=== PATIENT | female | born 1975 | race Hispanic/Latino ===

== ENCOUNTER 2017-04-26 09:01 | Day surgery (SDC) | payer OTHER ==
[2017-04-21 11:37] VITALS: BMI 27.4
[2017-04-26] MEDS ORDERED: Lactated Ringer's 1,000 ML IV ONE ×2 (10:10→12:20)
[2017-04-26 10:31] LABS: HEMOGLOBIN 12.9 g/dL (12.0-16.0); MEAN CELL VOLUME 85.2 fl (81.0-99.0); MEAN CORPUSCULAR HEMOGLOBIN 27.8 pg (27.0-31.0); MEAN CORPUSCULAR HGB CONC 32.7 g/dL (33.0-37.0); RBC 4.62 Mil/uL (3.80-5.20); RED CELL DISTRIBUTION WIDTH 17.1 % (11.5-14.5); WHITE BLOOD COUNT 5.5 K/uL (4.8-10.8)
[2017-04-26] MEDS ORDERED: Silver Nitrate Topical - Stick ONE (11:15)
[2017-04-26] MEDS ORDERED: Midazolam 2 MG/2 ML VIAL ONE (11:16)
[2017-04-26] MEDS ORDERED: Propofol 10 mg/ml Inj (20 ML) ONE (11:16)
--- NOTE | 2017-04-26 11:19 | CP.PCM.HP ---
History of Present Illness - History of Present Illness History of Present Illness: 41yo female found to have submusocal fibroid on SIS and ultrasound. Pt to be starting fertility treatment after fibroid removal. discussed with patient the R/B/A of procedure and all patient questions answered. Present on Admission - Present on Admission Any Indicators Present on Admission: No History of DVT/PE: No History of Uncontrolled Diabetes: No Urinary Catheter: No Decubitus Ulcer Present: No Past Patient History - Past Medical History & Family History Past Medical History?: No - Past Social History Smoking Status: Never Smoked - CARDIAC Hx Cardiac Disorders: No Hx Pacemaker: No - PULMONARY Hx Respiratory Disorders: No Hx Asthma: Yes Hx Bronchitis: Yes Hx Pneumonia: Yes - NEUROLOGICAL Hx Neurological Disorder: No Hx Paralysis: No - HEENT Hx HEENT Problems: No - RENAL Hx Chronic Kidney Disease: No - ENDOCRINE/METABOLIC Hx Endocrine Disorders: No - HEMATOLOGICAL/ONCOLOGICAL Hx Blood Disorders: No Hx Blood Transfusions: No Hx Blood Transfusion Reaction: No - INTEGUMENTARY Hx Dermatological Problems: No - MUSCULOSKELETAL/RHEUMATOLOGICAL Hx Musculoskeletal Disorders: No Hx Falls: No - GASTROINTESTINAL Hx Gastrointestinal Disorders: Yes Hx Gastritis: Yes - GENITOURINARY/GYNECOLOGICAL Hx Genitourinary Disorders: No - PSYCHIATRIC Hx Psychophysiologic Disorder: Yes Hx Anxiety: Yes Hx Depression: No Hx Emotional Abuse: No Hx Physical Abuse: No Hx Substance Use: No - SURGICAL HISTORY Hx Surgeries: Yes Hx Section: Yes Hx Dilation and Curettage: Yes Hx Tonsillectomy: Yes - ANESTHESIA Hx Anesthesia: Yes Hx Anesthesia Reactions: No Hx Malignant Hyperthermia: No Has any member of the family had a problem w/ anesthesia?: No Meds Allergies/Adverse Reactions: Allergies Allergy/AdvReac Type Severity Reaction Status Date / Time No Known Allergies Allergy Verified 05/27/15 20:23 Physical Exam - Constitutional Appears: Well, Non-toxic, No Acute Distress - Head Exam Head Exam: ATRAUMATIC - Eye Exam Eye Exam: EOMI, Normal appearance - ENT Exam ENT Exam: Mucous Membranes Moist, Normal Exam - Neck Exam Neck exam: Positive for: Full Rom, Normal Inspection - Respiratory Exam Respiratory Exam: Clear to Auscultation Bilateral, NORMAL BREATHING PATTERN - Cardiovascular Exam Cardiovascular Exam: REGULAR RHYTHM - GI/Abdominal Exam GI & Abdominal Exam: Soft. absent: Distended, Tenderness - Neurological Exam Neurological exam: Alert, Oriented x3 Results - Vital Signs Recent Vital Signs: Last Vital Signs Temp 98.4 F 04/26/17 09:50 Pulse 87 04/26/17 09:50 Resp 20 04/26/17 09:50 BP 153/96 H 04/26/17 09:50 Pulse Ox 100 04/26/17 09:50 - Labs Result Diagrams: 04/26/17 10:23 Labs: Laboratory Results - last 24 hr 04/26/17 04/26/17 10:23 10:23 WBC 5.5 RBC 4.62 Hgb 12.9 Hct 39.4 MCV 85.2 MCH 27.8 MCHC 32.7 L RDW 17.1 H Plt Count 132 Blood Type A POSITIVE Antibody Screen Negative BBK History Checked Patient has bt - Imaging and Cardiology US - abdomen Status: Report reviewed by me Assessment & Plan - Assessment and Plan (Free Text) Assessment: Submucosal fibroid Plan: Hysteroscopic myomectomy - Date & Time Date: 04/26/17 Time: 11:20
[2017-04-26] MEDS ORDERED: ePHEDrine 50 mg/ml Inj ONE (11:57)
[2017-04-26] MEDS ORDERED: Succinylcholine 200 mg/10 ml Inj IV ONE (12:01)
[2017-04-26 12:54] LABS: BASO % 0.8 % (0.0-2.0); EOS # 0.2 K/uL (0.0-0.7); EOS % 4.5 % (0.0-4.0); HEMOGLOBIN 11.6 g/dL (12.0-16.0); LYMPH # 1.5 K/uL (1.0-4.3); LYMPH % 31.5 % (20.0-40.0); MEAN CELL VOLUME 85.2 fl (81.0-99.0); MEAN CORPUSCULAR HEMOGLOBIN 28.5 pg (27.0-31.0); MEAN CORPUSCULAR HGB CONC 33.4 g/dL (33.0-37.0); MEAN PLATELET VOLUME 10.6 fl (7.2-11.7); MONO # 0.4 K/uL (0.0-0.8); MONO % 8.4 % (0.0-10.0); NEUT # 2.5 K/uL (1.8-7.0); NEUT % 54.8 % (50.0-75.0); RBC 4.07 Mil/uL (3.80-5.20); WHITE BLOOD COUNT 4.6 K/uL (4.8-10.8)
[2017-04-26 13:04] LABS: BLOOD UREA NITROGEN 10 mg/dl (7-17); CALCIUM 7.9 mg/dL (8.4-10.2); GFR AFRICAN-AMERICAN > 60; GFR NON-AFRICAN AMERICAN > 60
[2017-04-26 13:05] LABS: INR 1.1 (0.9-1.2); PARTIAL THROMBOPLASTIN TIME 26.9 Seconds (25.6-37.1); PROTHROMBIN TIME 12.2 Seconds (9.8-13.1)
[2017-04-26] MEDS ORDERED: Lactated Ringer's 1,000 ML IV SCH ×2 (13:30→13:45)
--- NOTE | 2017-04-26 13:42 | PCM.SURG1 ---
Surgeon's Initial Post Op Note - Surgeon's Notes Surgeon: Yokasta Size Cutter: Sven Type of Anesthesia: General Endo Anesthesia Administered By: Rosalie Pre-Operative Diagnosis: submucosal uterine fibroid Operative Findings: Enlarged fibroid uterus, cervical scarring Post-Operative Diagnosis: Same Operation Performed: Hysteroscopy, diagnostic laparoscopy. laparoscopy completed due too uterine perforation during dilation of cervix Specimen/Specimens Removed: none Estimated Blood Loss: EBL {In ML}: 50 Blood Products Given: N/A Drains Used: No Drains Post-Op Condition: Good Date of Surgery/Procedure: 04/26/17 Time of Surgery/Procedure: 13:43
[2017-04-26] MEDS ORDERED: Oxycodone/Acetaminophen 5/325 mg Tab PO PRN (13:45)
[2017-04-26 17:31] LABS: BASO % 0.3 % (0.0-2.0); EOS % 0.2 % (0.0-4.0); HEMOGLOBIN 11.5 g/dL (12.0-16.0); LYMPH # 0.9 K/uL (1.0-4.3); MEAN CORPUSCULAR HEMOGLOBIN 28.2 pg (27.0-31.0); MEAN CORPUSCULAR HGB CONC 33.2 g/dL (33.0-37.0); MEAN PLATELET VOLUME 9.9 fl (7.2-11.7); MONO # 0.5 K/uL (0.0-0.8); MONO % 4.7 % (0.0-10.0); NEUT % 86.8 % (50.0-75.0); PLATELET COUNT 129 K/uL (130-400); RBC 4.06 Mil/uL (3.80-5.20); RED CELL DISTRIBUTION WIDTH 17.3 % (11.5-14.5); WHITE BLOOD COUNT 11.5 K/uL (4.8-10.8)
[2017-04-26 17:57] LABS: BLOOD UREA NITROGEN 8 mg/dl (7-17); CALCIUM 7.9 mg/dL (8.4-10.2); GFR AFRICAN-AMERICAN > 60; GFR NON-AFRICAN AMERICAN > 60
[2017-04-26 19:29] LABS: BANDS 2 % (0-2); LYMPHOCYTE 12 % (20-50); MONOCYTE 6 % (0-10); NEUTROPHIL 80 % (42-75); TOTAL CELLS COUNTED 100
[2017-04-26 19:30] LABS: ANISOCYTOSIS SLIGHT; GIANT PLATELETS PRESENT; HYPOCHROMIC SLIGHT; MICROCYTOSIS SLIGHT; PLATELET ESTIMATE NORMAL (NORMAL)
[2017-04-26 22:58] LABS: BASO # 0.1 K/uL (0.0-0.2); BASO % 0.7 % (0.0-2.0); EOS % 0.3 % (0.0-4.0); HEMOGLOBIN 12.1 g/dL (12.0-16.0); LYMPH # 1.4 K/uL (1.0-4.3); LYMPH % 11.6 % (20.0-40.0); MEAN CELL VOLUME 86.2 fl (81.0-99.0); MEAN CORPUSCULAR HGB CONC 32.5 g/dL (33.0-37.0); MEAN PLATELET VOLUME 10.5 fl (7.2-11.7); MONO # 0.7 K/uL (0.0-0.8); MONO % 5.6 % (0.0-10.0); NEUT # 9.7 K/uL (1.8-7.0); NEUT % 81.8 % (50.0-75.0); NRBC % 0.1 % (0.0-0.0); RBC 4.32 Mil/uL (3.80-5.20); WHITE BLOOD COUNT 11.9 K/uL (4.8-10.8)
[2017-04-26 23:08] LABS: BLOOD UREA NITROGEN 8 mg/dl (7-17); CALCIUM 8.3 mg/dL (8.4-10.2); GFR AFRICAN-AMERICAN > 60; GFR NON-AFRICAN AMERICAN > 60
[2017-04-27 00:24] VITALS: RESP 18
--- NOTE | 2017-04-27 02:17 | OP ---
PROCEDURE DATE: 04/26/2017 PREOPERATIVE DIAGNOSIS: Submucosal uterine fibroid. POSTOPERATIVE DIAGNOSIS: Submucosal uterine fibroid. OPERATION PERFORMED: Hysteroscopy, diagnostic laparoscopy. SURGEON: Dr. Skyler Templeton PARTS TECHNICIAN: Dr. Machuca. Dr. Machuca assisted during the laparoscopic portion of the procedure. TYPE OF ANESTHESIA: General. ANESTHESIOLOGIST: Dr. Wiggins OPERATIVE FINDINGS: Endometrial cavity with significant scarring, uterine perforation at the level of the cervix at laparoscopy, no active uterine bleeding, fluid seen in retroperitoneal space in the broad ligament. Enlarged fibroid uterus, normal ovaries bilaterally, and normal appearing tubes bilaterally. COMPLICATIONS: Uterine perforation during cervical dilation. DESCRIPTION OF PROCEDURE: The patient was taken to the operating room where general anesthesia was found to be adequate. The patient was prepped and draped in normal sterile fashion in the dorsal lithotomy position. A weighted speculum was placed at the posterior aspect of the vagina. A Baldwin retractor was placed at the anterior surface of the vagina. The cervix was grasped with a single-tooth tenaculum at the anterior surface. The cervix was attempted to be dilated with a Handy dilators due to cervical scarring and cervical stenosis, lacrimal dilators were used at the initial dilation process. The cervix was continued to be dilated with Handy dilators to a size of 18-Telugu. The hysteroscope was placed through the cervix into the uterine cavity. The uterine cavity was visualized and no discrete uterine fibroids were seen in the uterine cavity. The uterine cavity appeared significantly scarred with only one tubal ostia visualized. Also, at this time, an accessory tract was seen at the level of the cervix. At that time in the procedure, the patient was found to be hypotensive and tachycardic. The fluid deficit on the MyoSure device was also 1000 mL at that time. Due to these events, decision was made to abandon the procedure and proceed with diagnostic laparoscopy to evaluate for possible bleeding. Attention was then turned to the abdomen of the patient. The patient's abdomen was prepped and draped in normal sterile fashion. Approximately 5-mm incision was placed in the umbilicus. The Veress needle was placed through the umbilical incision into the abdominal cavity. After ensuring proper placement, the abdominal cavity was insufflated with CO2 gas to a pressure of 15 mmHg. The Veress needle was removed from the patient. A 5-mm laparoscopic trocar was placed through the umbilical incision into the abdominal cavity. The laparoscope was placed through the trocar into the abdominal cavity. The abdomen and pelvis were explored and the above findings noted. An accessory port that was placed under direct visualization with a 5-mm trocar to properly explore the pelvis. After the pelvis was fully visualized and no active bleeding was seen, decision was made to end the procedure. All instruments and laparoscope were removed under direct visualization. The trocars were removed under direct visualization. The fascial layer at the umbilical port site and accessory port site were closed with a [id number] suture of 0 Vicryl. Subcutaneous tissue was closed with interrupted stitch of 3-0 plain. The skin was closed with Dermabond. The patient tolerated the procedure well. All sponge, lap count, and needle counts were correct x2. Upon transition to laparoscopy, the patient was given 2 g of Ancef. CBC and complete metabolic panel was drawn intraoperatively after perforation found. These labs were found to be within normal limits. After the patient's initial episode of hypotension, the patient was found to be normotensive and normocardic. The patient was taken to the recovery room in awake and stable condition. After the procedure, I discussed all events with the patient and the patient's . Decision was made for admission to the hospital for observation. Skyler Templeton MD
[2017-04-27 05:32] LABS: BASO # 0.1 K/uL (0.0-0.2); BASO % 0.6 % (0.0-2.0); EOS # 0.2 K/uL (0.0-0.7); EOS % 2.4 % (0.0-4.0); HEMOGLOBIN 12.6 g/dL (12.0-16.0); LYMPH # 2.2 K/uL (1.0-4.3); LYMPH % 22.9 % (20.0-40.0); MEAN CELL VOLUME 86.3 fl (81.0-99.0); MEAN CORPUSCULAR HEMOGLOBIN 28.1 pg (27.0-31.0); MEAN CORPUSCULAR HGB CONC 32.5 g/dL (33.0-37.0); MEAN PLATELET VOLUME 10.6 fl (7.2-11.7); MONO # 0.8 K/uL (0.0-0.8); MONO % 7.8 % (0.0-10.0); NEUT # 6.4 K/uL (1.8-7.0); NEUT % 66.3 % (50.0-75.0); RBC 4.47 Mil/uL (3.80-5.20); RED CELL DISTRIBUTION WIDTH 17.4 % (11.5-14.5); WHITE BLOOD COUNT 9.7 K/uL (4.8-10.8)
[2017-04-27 05:37] LABS: BLOOD UREA NITROGEN 7 mg/dl (7-17); CALCIUM 8.2 mg/dL (8.4-10.2); GFR AFRICAN-AMERICAN > 60; GFR NON-AFRICAN AMERICAN > 60
[2017-04-27 08:07] VITALS: BP 127/78; TEMP 98.5
--- NOTE | 2017-04-27 09:04 | CP.PCM.PN ---
Subjective - Date & Time of Evaluation Date of Evaluation: 04/27/17 Time of Evaluation: 09:01 - Subjective Subjective: Pt comfortable without complaints. Tolerating regular diet. Voiding without problems. Pain well controlled with PO motrin. No N/V, F/C, CP/SOB, VB Objective - Vital Signs/Intake and Output Vital Signs (last 24 hours): Temp Pulse Resp BP Pulse Ox 98.5 F 88 18 127/78 98 04/27/17 08:00 04/27/17 08:00 04/27/17 08:00 04/27/17 08:00 04/27/17 08:00 Intake and Output: 04/27/17 04/27/17 06:59 18:59 Intake Total 1240 Balance 1240 - Medications Medications: Current Medications Alprazolam (Xanax) 0.25 mg PO HS PRN PRN Reason: Anxiety Stop: 05/04/17 00:14 Lactated Ringer's (Lactated Ringer's) 1,000 mls @ 100 mls/hr IV .Q10H [facility] Last Admin: 04/26/17 14:30 Dose: 300 mls Lactated Ringer's (Lactated Ringer's) 1,000 mls @ 125 mls/hr IV .Q8H [facility] Last Admin: 04/26/17 23:30 Dose: 125 mls/hr Ibuprofen (Motrin Tab) 600 mg PO Q6 PRN PRN Reason: Pain, moderate (4-7) Last Admin: 04/27/17 08:32 Dose: 600 mg Oxycodone/Acetaminophen (Percocet 5/325 Mg Tab) 1 tab PO Q4 PRN PRN Reason: Pain, moderate (4-7) Stop: 04/29/17 13:46 Last Admin: 04/26/17 22:35 Dose: 1 tab - Labs Labs: 04/27/17 04:20 04/27/17 04:20 PT 12.2 Seconds (9.8-13.1) 04/26/17 12:45 INR 1.1 (0.9-1.2) 04/26/17 12:45 APTT 26.9 Seconds (25.6-37.1) 04/26/17 12:45 - Constitutional Appears: Well, Non-toxic, No Acute Distress - ENT Exam ENT Exam: Mucous Membranes Moist - Respiratory Exam Respiratory Exam: Clear to Ausculation Bilateral, NORMAL BREATHING PATTERN - Cardiovascular Exam Cardiovascular Exam: REGULAR RHYTHM - GI/Abdominal Exam Additional comments: Soft/NT/ND. Port sites C/D/I x 2. No rebound no gaurding. Normal BS Assessment and Plan - Assessment and Plan (Free Text) Assessment: POD#1 s/p hysteroscopy/laparoscopy. Recovering well. Plan: D/C home today. F/U [address] Templeton
[2017-04-27 12:25] VITALS: PULSE 88; O2SAT 99
== END 2017-04-27 12:00 | disposition home or self-care (01) ==
LOC: H.OPSURG 09:01 → UNDOADMIN 13:45 → H.TEL 13:45 → H.OPSURG 04-27 12:00
PROVIDERS: ATTEND Obstetrics & Gynecology
DX: D25.0 Submucous leiomyoma of uterus (principal); K21.9 Gastro-esophageal reflux disease without esophagitis
CPT/HCPCS: 36415; 58555; 80048; 85025; 85027; 85610; 85730; 86850; 86900; J0330; J0690; J1170; J2001; J2250; J2704; J3010; J7030; J7120